=== PATIENT | female | born 1975 | race African-American/Black ===

== ENCOUNTER 2019-05-06 16:42 | Emergency (ER) | payer OTHER ==
[~2019-05-06] VITALS: Ht 175.3 cm; Wt 72.6 kg
[~2019-05-06 16:42] MED LIST: FLEXERIL PO; SERTRALINE HCL50 MG PO
[2019-05-06] MEDS ORDERED: NORCO 5-325 TA1 EAC1 PO (17:16)
[2019-05-06] MEDS ORDERED: AUGMENTIN 500-1 EACH PO (17:16)
[2019-05-06] MEDS ORDERED: OCUFLOX5 ML OTIC (17:16)
[2019-05-06] MEDS ORDERED: IBUPROFEN 600600 M1 PO (17:19)
[2019-05-06 17:42] VITALS: BP 130/79
== END 2019-05-06 17:43 | disposition home or self-care (01) ==
LOC: M.ERS 16:42
DX: H66.92 Otitis media, unspecified, left ear (principal); H60.92 Unspecified otitis externa, left ear; F17.200 Nicotine dependence, unspecified, uncomplicated; Z91.013 Allergy to seafood

== ENCOUNTER 2019-08-30 17:08 | Emergency (ER) | payer OTHER ==
[~2019-08-30] VITALS: Ht 172.7 cm; Wt 74.8 kg
[~2019-08-30 17:08] MED LIST changes: +AUGMENTIN 500-1 EACH PO; +IBUPROFEN 600600 M1 PO; +NORCO 5-325 TA1 EAC1 PO; +OCUFLOX5 ML OTIC
[2019-08-30] MEDS ORDERED: BACITRAYCIN PLU28 GM TOP (17:59)
[2019-08-30] MEDS ORDERED: IBU600 MG PO (17:59)
[2019-08-30] MEDS ORDERED: NORCO 5-325 TA1 EAC1 PO (18:00)
[2019-08-30 18:37] VITALS: BP 135/85
== END 2019-08-30 18:37 | disposition home or self-care (01) ==
LOC: M.ERS 17:08
DX: T24.212A Burn of second degree of left thigh, initial encounter (principal); T24.211A Burn of second degree of right thigh, initial encounter; T22.212A Burn of second degree of left forearm, initial encounter; T31.0 Burns involving less than 10% of body surface; Z91.013 Allergy to seafood; X10.1XXA Contact with hot food, initial encounter; Y93.G3 Activity, cooking and baking; Y92.89 Other specified places as the place of occurrence of the external cause; Y99.8 Other external cause status